=== PATIENT | male | born 1950 | race Caucasian/White ===

== ENCOUNTER 2021-03-16 08:34 | Outpatient (CLI) | payer BC ==
[2021-03-16 10:38] LABS: Hemoglobin 14.4 g/dL (13.5-17.5); Mean Corpuscular HGB CONC 34.6 g/dL (32.0-36.0); Mean Corpuscular Hemoglobin 31.4 pg (27.0-33.0); Mean Corpuscular Volume 90.8 fl (81.2-95.1); Mean Platelet Volume 9.2 fl (7.4-10.4); Platelet Count 321 10x3/uL (150-450); RBC Distribution Width 12.9 % (11.5-14.5); Red Blood Cell (RBC) Count 4.58 10x6/uL (4.32-5.72); White Blood Cell (WBC) Count 4.9 10x3/uL (3.5-10.5)
[2021-03-16 10:49] LABS: PTT 27.2 sec (22.0-33.0); Prothrombin Time 11.2 sec (9.5-12.1)
[2021-03-16 11:15] LABS: Anion Gap 12 mmol/L (10-20); BUN (Urea Nitrogen) 12 mg/dL (8.4-25.7); Calc. Creatinine Clearance 0 mL/min (70-130); Calcium 9.2 mg/dL (7.8-10.44); Carbon Dioxide 27 mmol/L (23-31); Chloride 105 mmol/L (98-107); Glucose 102 mg/dL (83-110); Potassium 4.9 mmol/L (3.5-5.1); Sodium 139 mmol/L (136-145)
== END 2021-03-16 08:35 | disposition home or self-care (01) ==
LOC: LABBT 08:34
PROVIDERS: ATTEND Internal Medicine Cardiovascular Disease
DX: Z01.812 Encounter for preprocedural laboratory examination (principal); I48.91 Unspecified atrial fibrillation
CPT/HCPCS: 80048; 85027; 85610; 85730

== ENCOUNTER 2021-03-21 09:27 | Observation (INO) | payer BC ==
[2021-03-21] MEDS ORDERED: Fentanyl 100 MCG/2 ML VIAL ONE (12:22)
[2021-03-21] MEDS ORDERED: Heparin 10,000 UNITS/ 10 ML VIAL ONE ×3 (12:24→13:44)
[2021-03-21] MEDS ORDERED: Phenylephrine 10 MG/ML VIAL ONE (12:32)
[2021-03-21] MEDS ORDERED: Ondansetron PF 4 MG/2 ML Vial ONE ×2 (12:42→17:47)
[2021-03-21] MEDS ORDERED: Lidocaine 1% PF 5 ML VIAL ONE (12:42)
[2021-03-21] MEDS ORDERED: Glycopyrrolate 0.2 MG/ML 5 ML SYRINGE ONE (12:42)
[2021-03-21] MEDS ORDERED: ePHEDrine Sulfate 50 MG/10 ML VIAL ONE (12:42)
[2021-03-21] MEDS ORDERED: Dexamethasone 20 MG/5 ML VIAL ONE (12:42)
[2021-03-21] MEDS ORDERED: PROPOFOL 200 MG/20 ML VIAL ONE (12:42)
[2021-03-21] MEDS ORDERED: Rocuronium Bromide 10 MG/ML (10ML VIAL) ONE (12:42)
[2021-03-21] MEDS ORDERED: Heparin 25,000 units/D5W 0 ML ONE (13:41)
[2021-03-21] MEDS ORDERED: Heparin 25,000 units/D5W 500 ML ONE (13:44)
[2021-03-21] MEDS ORDERED: Isoproterenol 0.2 MG/1 ML AMP ONE (14:34)
[2021-03-21] MEDS ORDERED: Protamine Sulfate 50 MG/5 ML VIAL ONE (15:30)
[2021-03-21] MEDS ORDERED: Acetaminophen 325 MG TAB ONE ×2 (16:25)
[2021-03-21] MEDS ORDERED: Furosemide 40 MG TAB PO PRN (16:42)
[2021-03-21] MEDS ORDERED: Potassium Chloride 20 MEQ TAB PO PRN (16:43)
[2021-03-21] MEDS ORDERED: Acetaminophen 325 MG TAB PO PRN (16:45)
[2021-03-21] MEDS ORDERED: Calcium Carbonate 500 MG ChewTAB PO PRN (16:47)
[2021-03-21] MEDS ORDERED: Ketorolac Tromethamine 30 MG/ML VIAL ONE (16:57)
[2021-03-21] MEDS ORDERED: Sodium Chloride 0.9% 10 ML ONE (16:57)
[2021-03-21] MEDS ORDERED: Promethazine HCl 25 MG/ML VIAL ONE (17:47)
[2021-03-21] MEDS ORDERED: Tamsulosin HCl 0.4 MG CAP PO SCH (21:00)
[2021-03-21] MEDS: Sucralfate 1 GM TAB PO SCH (21:44)
[2021-03-21] MEDS: Apixaban 5 MG TAB PO SCH (21:45)
[2021-03-21] MEDS ORDERED: Ketorolac Tromethamine 30 MG/ML VIAL IVP PRN (22:30)
[2021-03-22] MEDS: Sucralfate 1 GM TAB PO SCH ×3 (01:23→12:34)
[2021-03-22 06:31] VITALS: BMI 22.8
[2021-03-22 07:49] VITALS: BP 127/69; TEMP 97.8
[2021-03-22] MEDS: Apixaban 5 MG TAB PO SCH (08:39)
[2021-03-22] MEDS ORDERED: Finasteride 5 MG TAB PO SCH (21:00)
[2021-03-28] MEDS ORDERED: SILDENAFIL PO SCH (09:00)
== END 2021-03-22 14:40 | disposition home or self-care (01) ==
LOC: SDC 09:27 → 2NO 09:43
PROVIDERS: ADMIT Internal Medicine Cardiovascular Disease; ATTEND Internal Medicine Cardiovascular Disease
PROC: 4A023FZ Measurement of Cardiac Rhythm, Percutaneous Approach (ICD-10-PCS; principal; 2021-03-22)
PROC: 4A0234Z Measurement of Cardiac Electrical Activity, Percutaneous Approach (ICD-10-PCS; 2021-03-22)
PROC: 02583ZZ Destruction of Conduction Mechanism, Percutaneous Approach (ICD-10-PCS; 2021-03-22)
PROC: 02K83ZZ Map Conduction Mechanism, Percutaneous Approach (ICD-10-PCS; 2021-03-22)
DX: I48.0 Paroxysmal atrial fibrillation (principal); I49.5 Sick sinus syndrome; K21.9 Gastro-esophageal reflux disease without esophagitis; N40.1 Benign prostatic hyperplasia with lower urinary tract symptoms; M19.90 Unspecified osteoarthritis, unspecified site; Z79.01 Long term (current) use of anticoagulants; Z79.899 Other long term (current) drug therapy; Z88.5 Allergy status to narcotic agent
CPT/HCPCS: 85347; 93005; 93010; 93613; 93655; 93656; 93657; 93662; C1732; C1759; J1100; J1644; J1885; J2370; J2405; J2550; J2704; J2720; J3010

== ENCOUNTER 2023-11-09 08:04 | Outpatient (CLI) | payer BC, MEDICARE | END 2023-11-09 08:05 | disposition home or self-care (01) | LOC: CT 08:04 | PROVIDERS: ATTEND Otolaryngology Plastic Surgery within the Head & Neck | DX: H90.3 Sensorineural hearing loss, bilateral (principal) | CPT/HCPCS: 70480 ==

== ENCOUNTER 2024-05-03 13:59 | Emergency (ER) | payer MEDICARE | END 2024-05-03 15:53 | disposition home or self-care (01) | LOC: ERS 13:59 | DX: K56.41 Fecal impaction (principal) | CPT/HCPCS: 74018 ==

== ENCOUNTER 2025-09-24 14:58 | Emergency (ER) | payer MEDICARE | END 2025-09-24 17:56 | LOC: ERS 14:58 | DX: Z53.21 Procedure and treatment not carried out due to patient leaving prior to being seen by health care provider (principal) ==